=== PATIENT | male | born 1985 | race Caucasian/White ===

== ENCOUNTER 2017-01-12 23:07 | Emergency (ER) | payer OTHER ==
[2017-01-12 23:30] VITALS: TEMP 99
[2017-01-13 00:01] LABS: ALBUMIN 3.7 gm/dl (3.4-5.0); ALT 44 IU/L (14-63); CALCIUM 8.9 mg/dl (8.5-10.1); GLOM FILT RATE 102 mL/min (>60); POTASSIUM 4.3 mMol/L (3.5-5.1); SODIUM 140 mMol/L (136-145)
[2017-01-13 00:07] LABS: BASOPHILS % (AUTO) 1 % (0-3); EOSINOPHILS % (AUTO) 2 % (0-9); HEMATOCRIT 46 % (39-53); MEAN CORPUSCULAR VOLUME 85 fL (80-100); MONOCYTES % (AUTO) 4.9 % (0-12); NEUTROPHILS % (AUTO) 74.4 % (37-80)
[2017-01-13] MEDS ORDERED: ALBUTEROL/IPRATROPIUM 1 VIAL SOL INH ONE (00:30)
[2017-01-13] MEDS ORDERED: KETOROLAC TROMETHAMINE 30 MG/ML SOL IV ONE (00:30)
[2017-01-13] MEDS ORDERED: SODIUM CHLORIDE 0.9% FLUSH 10 ML SOL IV PRN (00:30)
[2017-01-13] MEDS ORDERED: ALBUTEROL/IPRATROPIUM 1 VIAL SOL ONE (00:31)
[2017-01-13] MEDS ORDERED: KETOROLAC TROMETHAMINE 30 MG/ML SOL ONE (00:31)
[2017-01-13] MEDS ORDERED: LIDOCAINE HCL 2% (VISCOUS) 20 ML SOL MT ONE (00:36)
[2017-01-13] MEDS ORDERED: ALUMINUM/MAGNESIUM 30 ML SUS PO ONE (00:36)
[2017-01-13] MEDS ORDERED: ALUMINUM/MAGNESIUM 30 ML SUS ONE (00:40)
[2017-01-13] MEDS ORDERED: LIDOCAINE HCL 2% (VISCOUS) 20 ML SOL ONE (00:41)
[2017-01-13] MEDS ORDERED: NITROGLYCERIN 0.4 MG TAB SL ONE (00:52)
[2017-01-13] MEDS: NITROGLYCERIN 0.4 MG TAB SL PRN ×3 (00:53→02:03)
[2017-01-13] MEDS ORDERED: ASPIRIN 81 MG CHEWABLE CTB PO ONE (01:01)
[2017-01-13] MEDS ORDERED: ASPIRIN 81 MG CHEWABLE CTB ONE (01:01)
[2017-01-13] MEDS ORDERED: HEPARIN SODIUM 5000 U/ML SOL IV ONE (01:26)
[2017-01-13] MEDS ORDERED: HEPARIN SODIUM 5000 U/ML SOL ONE (01:28)
[2017-01-13] MEDS ORDERED: HEPARIN PREMIX 25,000 U/250 ML SOL IV SCH (01:30)
[2017-01-13 02:02] VITALS: BP 153/101; PULSE 114; RESP 18; O2SAT 95
[2017-01-13] MEDS ORDERED: ASPIRIN 325 MG TAB PO SCH (09:00)
== END 2017-01-13 02:15 | disposition short-term general hospital (02) ==
LOC: ED 23:07
DX: I20.0 Unstable angina (principal)
CPT/HCPCS: 99291 ×2; 80053; 84484 ×2; 85025; 85378; 93005 ×2; J1644; J1885; 71020; J7620